=== PATIENT | female | born 1995 | race Caucasian/White ===

== ENCOUNTER 2019-03-04 14:22 | Emergency (ER) | payer BC ==
[2019-03-04 15:20] VITALS: BP 102/55
[2019-03-04] MEDS ORDERED: Ibuprofen ADULT LIQ* 600 MG/30 ML UDC PO ONE (15:27)
--- NOTE | 2019-03-04 15:36 | UC ---
General HPI - HPI Summary HPI Summary: pt rolled her R ankle playing tennis today. she is c/o lateral ankle pain. able to walk. - History of Current Complaint Chief Complaint: UCLowerExtremity Stated Complaint: RIGHT ANKLE INJURY Time Seen by Provider: 03/04/19 15:22 Hx Obtained From: Patient Hx Last Menstrual Period: 02/25/19 Onset/Duration: Sudden Onset Timing: Constant Pain Intensity: 3 Associated Signs & Symptoms: Negative: Weakness - Allergy/Home Medications Allergies/Adverse Reactions: Allergies Allergy/AdvReac Type Severity Reaction Status Date / Time No Known Allergies Allergy Verified 03/04/19 15:20 Home Medications: Home Medications Norethindrone AC-Eth Estradiol [Junel 1 mg-20 Mcg Tablet] 1 each PO DAILY [History Confirmed 03/04/19] PMH/Surg Hx/FS Hx/Imm Hx Previously Healthy: Yes - Surgical History Surgical History: None - Family History Known Family History: Positive: Non-Contributory - Social History Alcohol Use: Weekly Substance Use Type: None Smoking Status (MU): Never Smoked Tobacco Review of Systems All Other Systems Reviewed And Are Negative: No Constitutional: Negative: Fever Skin: Negative: Rash Musculoskeletal: Negative: Decreased ROM Neurological: Negative: Weakness, Paresthesia, Numbness Physical Exam Triage Information Reviewed: Yes Appearance: Well-Appearing Vital Signs: Initial Vital Signs Temp 98.8 F 03/04/19 15:13 Pulse 58 03/04/19 15:13 Resp 16 03/04/19 15:13 BP 102/55 03/04/19 15:13 Pulse Ox 100 03/04/19 15:13 Vital Signs Reviewed: Yes Cardiovascular: Positive: RRR Musculoskeletal: Positive: Other: - RLE: hip, knee, achilles and foot are without deformity or tenderness. Lateral ankle tenderness. foot has full s/v/m function. Neurological: Positive: Alert Psychological: Positive: Age Appropriate Behavior Skin Exam: Normal Skin: Negative: Rashes Diagnostics - Radiology No standard instances Radiology Interpretation Completed By: Radiologist - IMPRESSION: No fracture of the right ankle is noted. Course/Dx - Differential Dx - Multi-Symptom Differential Diagnoses: Other - no fx or dislocation - Diagnoses Provider Diagnosis: Sprain of ankle, right Discharge ED - Sign-Out/Discharge Documenting (check all that apply): Patient Departure All imaging exams completed and their final reports reviewed: Yes - Discharge Plan Condition: Stable Disposition: HOME Patient Education Materials: Ankle Sprain (ED) Referrals: Sp Dillard MD [Medical Doctor] - 5 Days Additional Instructions: USE THE ASHLEE AND SPLINT UNTIL CLEARED. - Billing Disposition and Condition Condition: STABLE Disposition: Home - Attestation Statements Provider Attestation: I was available for consult. This patient was seen by the MARIO. The patient was not presented to , seen by or examined by az -Blanka Bonds MD
== END 2019-03-04 16:27 | disposition home or self-care (01) ==
LOC: UCCORT 14:22
DX: S93.401A Sprain of unspecified ligament of right ankle, initial encounter (principal); X50.0XXA Overexertion from strenuous movement or load, initial encounter; Y93.73 Activity, racquet and hand sports; Y92.9 Unspecified place or not applicable
CPT/HCPCS: 99202; A9270-GY; G0463